=== PATIENT | female | born 1975 | race Caucasian/White ===

== ENCOUNTER 2016-11-26 20:04 | Emergency (ER) | payer BC, MEDICAID ==
[2016-11-26] MEDS ORDERED: COLCHICINE 0.6 MG TABLET PO ONE (20:46)
[2016-11-26] MEDS ORDERED: INDOMETHACIN 25 MG CAPSULE PO ONE (20:46)
--- NOTE | 2016-11-26 20:51 | Emergency Department Record ---
History of Present Illness - General Chief complaint: Pain Stated complaint: RT THUMB PAIN Time Seen by Provider: 11/26/16 20:46 Source: Patient Mode of Arrival: Ambulatory Limitations: No limitations - History of Present Illness Initial comments: 40 yo female presents to ED with a CC of right thumb pain for the past 5 days. Patient denies any injury to the thumb, but does report history of arthritis. Patient also reports a history of DM. Patient denies fevers, chills, or signs of infection. MD Complaint: Joint pain Onset/Timin -: Days(s) Location: Right, Other History of Same: No -: Yes Arthralgia Severity scale (1-10): 8 Quality: Sharp, Other Consistency: Constant Improves with: Nothing Worsens with: Nothing Associated Symptoms: Denies other symptoms - Related Data Previous Rx's Medication Instructions Recorded Hydrocodone/Acetaminophen [[place] 1 tab PO Q6H PRN #10 tab 11/26/16 5mg/325mg] Indomethacin [Indocin] 50 mg PO TID #30 cap 11/26/16 Allergies Allergy/AdvReac Type Severity Reaction Status Date / Time phenylpropanolamine HCl Allergy Unknown HIVES Unverified 09/16/16 08:19 [From DIMETAPP ALLERGY] gabapentin [From Neurontin] Allergy tremmors Unverified 09/16/16 08:19 Travel Screening - Travel/Exposure Within Last 30 Days Have you traveled within the last 30 days?: No Review of Systems Constitutional: Denies: Chills, Fever, Malaise, Night sweats Eyes: Denies: Eye discharge, Eye pain ENT: Denies: Congestion, Ear pain, Epistaxis Respiratory: Denies: Cough, Dyspnea Cardiovascular: Denies: Chest pain, Dyspnea on exertion Endocrine: Denies: Fatigue, Heat or cold intolerance Gastrointestinal: Denies: Abdominal pain, Nausea, Vomiting Genitourinary: Denies: Dysuria, Frequency Musculoskeletal: Reports: Arthralgia, Joint swelling. Denies: Back pain, Gout Skin: Denies: Bruising, Change in color, Change in hair/nails Neurological: Denies: Abnormal gait, Confusion, Headache, Seizure Psychiatric: Denies: Anxiety Hematological/Lymphatic: Denies: Anemia, Blood Clots Past Medical History - SOCIAL HISTORY Smoking Status: Current every day smoker Alcohol Use: Rare Drug Use: Occassional Drug Use Detail:: Marijuana - RESPIRATORY Hx Respiratory Disorders: Yes Hx Asthma: Yes Hx Bronchitis: Yes Hx Pneumonia: Yes - CARDIOVASCULAR Hx Cardio Disorders: No - NEURO Hx Neuro Disorders: Yes Hx Headaches: Yes - GI Hx GI Disorders: No - Hx Genitourinary Disorders: No - ENDOCRINE Hx Endocrine Disorders: Yes Hx Diabetes: Yes - MUSCULOSKELETAL Hx Arthritis: Yes - PSYCH Hx Anxiety: Yes Hx Depression: Yes - HEMATOLOGY/ONCOLOGY Hx Hematology/Oncology Disorders: No Family Medical History Any Significant Family History?: Yes Hx Dementia: Grandparents Hx Diabetes: Mother, Grandparents Hx Heart Disease: Grandparents Physical Exam - General General Appearance: Alert, Oriented x3, Cooperative Limitations: No limitations - Head Head exam: Atraumatic, Normocephalic, Normal inspection Head exam detail: negative: Abrasion, Contusion, Bowen's sign, General tenderness, Hematoma, Laceration - Eye Eye exam: Normal appearance. negative: Conjunctival injection, Periorbital swelling, Periorbital tenderness, Scleral icterus - ENT Ear exam: negative: Auricular hematoma, Auricular trauma Nasal Exam: negative: Active bleeding, Discharge, Dried blood, Foreign body Mouth exam: negative: Drooling, Laceration, Muffled voice, Tongue elevation - Neck Neck exam: Normal inspection. negative: Meningismus, Tenderness - Respiratory Respiratory exam: Normal lung sounds bilaterally. negative: Rales, Respiratory distress, Rhonchi, Stridor - Cardiovascular Cardiovascular Exam: Regular rate, Normal rhythm, Normal heart sounds - GI/Abdominal GI/Abdominal exam: Soft. negative: Rebound, Rigid, Tenderness - Rectal Rectal exam: Deferred - exam: Deferred - Extremities Extremities exam: Full ROM, Tenderness, Other (TTP over the base of the right thumb, pain with ROM, mild erythema over the area without signs of infection present. Findings are c/w Gout.). negative: Calf tenderness, Pedal edema - Back Back exam: Denies: CVA tenderness (R), CVA tenderness (L), Paraspinal tenderness - Neurological Neurological exam: Alert, Normal gait, Oriented X3 - Psychiatric Psychiatric exam: Normal affect, Normal mood - Skin Skin exam: Normal color. negative: Abrasion Type of lesion: negative: abrasion Course Vital Signs 11/26/16 20:10 Temperature 98.3 F Pulse Rate [ 68 Pulse Ox Probe] Respiratory 21 Rate Blood Pressure 132/83 [Left Arm] Pulse Ox 98 - Reevaluation(s) Reevaluation #1: 11/26/16 20:50 Patient was counseled regarding probably GOUT, would like prefer labs to be drawn for further evaluation. Colchicine and Indomethacin ordered as well. Reevaluation #2: 11/26/16 21:46 Right thumb: Negative Reevaluation #3: 11/26/16 22:01 Labs reviewed and are grossly unremarkable for an acute process. Will treat as probable Gout with Indomethacin and [place] as needed for her pain sympotms with instructions for follow-up in 3-5 days with her PCP. Medical Decision Making - Lab Data Result diagrams: 11/26/16 21:30 11/26/16 21:30 Disposition Disposition: Discharge Clinical Impression: Pain of right thumb Gout Qualifiers: Gout site: hand Gout etiology: unspecified cause Laterality: right Chronicity: acute Qualified Code(s): M10.9 - Gout, unspecified Disposition: Home, Self-Care Condition: (2) Stable Instructions: Acute Gouty Arthritis (ED) Additional Instructions: Return to ED if your symptoms worsen or if you have any concerns. Indomethacin as directed. Follow-up with your family doctor in 3-5 days as directed. Prescriptions: Indomethacin [Indocin] 50 mg PO TID #30 cap Hydrocodone/Acetaminophen [[place] 5mg/325mg] 1 tab PO Q6H PRN #10 tab PRN Reason: Pain - General Forms: Patient Portal Access Time of Disposition: 22:02
[2016-11-26 21:40] LABS: BASO % 0.4 % (0-6); GRAN % 62.2 % (47-80); HEMATOCRIT 42.9 % (35.0-47.0); HEMOGLOBIN 14.5 gm/dl (11.6-16.0); LYMPH % 26.6 % (16-45); MEAN CELL VOLUME 94.3 fl (81-97); MEAN CORPUSCULAR HEMOGLOBIN 31.9 pg (27-33); MEAN CORPUSCULAR HGB CONC 33.8 g/dl (32-36); MEAN PLATELET VOLUME 10.9 fl (7.4-10.4); MONO % 6.8 % (0-9); PLATELET COUNT 180 K/uL (130-400); RED BLOOD COUNT 4.55 M/uL (3.80-5.40); RED CELL DISTRIBUTION WIDTH 13.1 % (11.5-14.5); WHITE BLOOD COUNT W/O DIFF 7.2 K/uL (4.2-12.2)
[2016-11-26 21:50] LABS: ALB/GLOB RATIO 1.3 (1.1-1.8); ALBUMIN 3.7 gm/dL (3.5-5.0); ALKALINE PHOSPHATASE 39 U/L (38-126); ALT/SGPT 26 U/L (9-52); ANION GAP 2.9 (7-16); AST/SGOT 14 U/L (14-36); BILIRUBIN,TOTAL 0.53 mg/dL (0.2-1.3); BLOOD UREA NITROGEN 9 mg/dL (7-17); CARBON DIOXIDE 25.1 mmol/L (22-30); CREATININE 0.8 mg/dL (0.52-1.04); EST GLOMERULAR FILTRATION RATE > 60 ml/min; GLUCOSE,RANDOM 85 mg/dL (70-110); TOTAL PROTEIN 6.6 gm/dL (6.3-8.2)
[2016-11-26] MEDS ORDERED: HYDROCODONE/APAP 5/325MG TABLET PO ONE (22:08)
--- NOTE | 2016-11-30 15:15 | RADIOLOGY REPORT ---
EXAM: RIGHT HAND, THREE VIEWS HISTORY: PAIN IN THE RIGHT THUMB. TECHNIQUE: Three views of the right hand are provided along with the comparison study of the left hand dated 11/09/13. FINDINGS: There is no radiographic evidence of a fracture or dislocation of the right hand. No significant soft tissue abnormalities are visualized. IMPRESSION: NO RADIOGRAPHIC EVIDENCE OF AN ACUTE PROCESS INVOLVING THE RIGHT HAND. JOB NUMBER: [id number] [facility]
== END 2016-11-26 22:21 | disposition home or self-care (01) ==
LOC: ER 20:04
DX: M10.9 Gout, unspecified (principal); M79.644 Pain in right finger(s)
CPT/HCPCS: 80053; 84550; 85025; 99283

== ENCOUNTER 2017-07-13 07:38 | Emergency (ER) | payer BC, MEDICAID ==
[2017-07-13 07:56] LABS: URINE APPEARANCE SL CLOUDY; URINE BILIRUBIN NEGATIVE (NEGATIVE); URINE BLOOD NEGATIVE (NEGATIVE); URINE COLOR YELLOW; URINE GLUCOSE (UA) NEGATIVE (NEGATIVE); URINE KETONE NEGATIVE (NEGATIVE); URINE LEUKOCYTE ESTERASE NEGATIVE (NEGATIVE); URINE NITRITE NEGATIVE (NEGATIVE); URINE PROTEIN NEGATIVE (NEGATIVE); URINE UROBILINOGEN 0.2 E.U./dL (0.20 - 1.00)
--- NOTE | 2017-07-13 08:17 | Emergency Department Record ---
History of Present Illness - General Chief Complaint: Abdominal Pain Stated Complaint: RIGHT SIDE PAIN Time Seen by Provider: 07/13/17 07:51 Source: Patient, RN notes reviewed Mode of Arrival: Ambulatory - History of Present Illness Initial Comments: 2 weeks of right upper quad pain and last night pain moved into her back and much worse sharp stabbing pain with nausea . PSH GB surg, hernia surg at 6 yrs of age. 4 days of sinuses and congestion and cough. father had kidney stones Onset/Timin -: Week(s) Location: R Flank Radiation: None Severity: Moderate Quality: Sharp Consistency: Constant, Getting worse Improves With: Nothing Worsens With: Nothing Associated Symptoms: Denies other symptoms Treatments Prior to Arrival: NSAIDs - Related Data Patient : No Home Medications Medication Instructions Recorded Confirmed Last Taken Albuterol Sulfate [Proair Hfa] 2 puff INH ASDIR 07/13/17 07/13/17 Unknown Cholecalciferol (Vitamin D3) 1 tab PO DAILY 07/13/17 07/13/17 07/13/17 [Vitamin D3] Coy-3 Fatty Acids/Fish Oil [Fish 1 tab PO DAILY 07/13/17 07/13/17 07/13/17 Oil 1,000 mg Capsule] Previous Rx's Medication Instructions Recorded Hydrocodone/Acetaminophen [[place] 1 each PO Q4HR #20 tablet 07/13/17 5-325 Tablet] Allergies Allergy/AdvReac Type Severity Reaction Status Date / Time phenylpropanolamine HCl Allergy Unknown HIVES Verified 07/13/17 07:45 [From DIMETAPP ALLERGY] gabapentin [From Neurontin] Allergy tremmors Verified 07/13/17 07:45 Travel Screening - Travel/Exposure Within Last 30 Days Have you traveled within the last 30 days?: No - Travel/Exposure Within Last Year Have you traveled outside the [place] in the last year?: No - Additonal Travel Details Have you been exposed to anyone with a communicable illness?: No - Travel Symptoms Symptom Screening: None Review of Systems Reviewed: No additional complaints except as noted below Constitutional: Reports: As per HPI. Denies: Chills, Fever, Malaise, Night sweats, Weakness, Weight change Eyes: Reports: As per HPI. Denies: Eye discharge, Eye pain, Photophobia, Vision change ENT: Reports: As per HPI, Congestion. Denies: Dental pain, Ear pain, Epistaxis , Hearing loss, Throat pain Respiratory: Reports: As per HPI. Denies: Cough, Dyspnea, Hemoptysis, Stridor, Wheezes Cardiovascular: Reports: As per HPI. Denies: Arrhythmia, Chest pain, Dyspnea on exertion, Edema, Murmurs, Orthopnea, Palpitations, Paroxysmal nocturnal dyspnea, Rheumatic Fever, Syncope Endocrine: Reports: As per HPI. Denies: Fatigue, Heat or cold intolerance, Polydipsia, Polyuria Gastrointestinal: Reports: As per HPI, Abdominal pain (right upper quad and right flank pain). Denies: Constipation, Diarrhea, Hematemesis, Hematochezia, Melena, Nausea, Vomiting Genitourinary: Reports: As per HPI. Denies: Abnormal menses, Discharge, Dyspareunia, Dysuria, Frequency, Hematuria, Incontinence, Retention, Urgency Musculoskeletal: Reports: As per HPI. Denies: Arthralgia, Back pain, Gout, Joint swelling, Myalgia, Neck pain Skin: Reports: As per HPI. Denies: Bruising, Change in color, Change in hair/ nails, Lesions, Pruritus, Rash Neurological: Reports: As per HPI. Denies: Abnormal gait, Confusion, Headache, Numbness, Paresthesias, Seizure, Tingling, Tremors, Vertigo, Weakness Psychiatric: Reports: As per HPI. Denies: Anxiety, Auditory hallucinations, Depression, Homicidal thoughts, Suicidal thoughts, Visual hallucinations Hematological/Lymphatic: Reports: As per HPI. Denies: Anemia, Blood Clots, Easy bleeding, Easy bruising, Swollen glands Past Medical History - SOCIAL HISTORY Smoking Status: Current every day smoker Alcohol Use: Occasional Drug Use: Heavy Drug Use Detail:: Marijuana - RESPIRATORY Hx Respiratory Disorders: Yes Hx Asthma: Yes Hx Bronchitis: Yes Hx Pneumonia: Yes - CARDIOVASCULAR Hx Cardio Disorders: No - NEURO Hx Neuro Disorders: Yes Hx Headaches: Yes - GI Hx GI Disorders: No - Hx Genitourinary Disorders: No - ENDOCRINE Hx Endocrine Disorders: Yes Hx Diabetes: Yes - MUSCULOSKELETAL Hx Arthritis: Yes - PSYCH Hx Anxiety: Yes Hx Depression: Yes - HEMATOLOGY/ONCOLOGY Hx Hematology/Oncology Disorders: No Family Medical History Any Significant Family History?: Yes Hx Dementia: Grandparents Hx Diabetes: Mother, Grandparents Hx Heart Disease: Grandparents Physical Exam - General General Appearance: Alert, Oriented x3, Cooperative, No acute distress - Head Head exam: Normal inspection - Eye Eye exam: Normal appearance, PERRL Pupils: Normal accommodation - ENT ENT exam: Normal exam, Mucous membranes moist, Normal external ear exam, Normal orophraynx, TM's normal bilaterally Ear exam: Normal external inspection. negative: External canal tenderness Nasal Exam: Normal inspection. negative: Discharge, Sinus tenderness Mouth exam: Normal external inspection, Tongue normal Teeth exam: Normal inspection. negative: Dental caries Throat exam: Normal inspection. negative: Tonsillar erythema, Tonsillar exudate - Neck Neck exam: Normal inspection, Full ROM. negative: Tenderness - Respiratory Respiratory exam: Normal lung sounds bilaterally. negative: Respiratory distress - Cardiovascular Cardiovascular Exam: Regular rate, Normal rhythm, Normal heart sounds - GI/Abdominal GI/Abdominal exam: Soft, Normal bowel sounds, Guarding, Tenderness (right upper quad pain and right flank pain, abd soft ). negative: Distended, Mass, Rebound , Rigid - Rectal Rectal exam: Deferred - exam: Deferred - Extremities Extremities exam: Normal inspection, Full ROM, Normal capillary refill. negative: Tenderness - Back Back exam: Reports: Normal inspection, Full ROM. Denies: Muscle spasm, Rash noted, Tenderness - Neurological Neurological exam: Alert, Normal gait, Oriented X3, Reflexes normal - Psychiatric Psychiatric exam: Normal affect, Normal mood - Skin Skin exam: Dry, Intact, Normal color, Warm Course Vital Signs 07/13/17 07:51 Temperature 98.7 F Pulse Rate 83 Respiratory 20 Rate Blood Pressure 134/84 Pulse Ox 96 Medical Decision Making - Data Complexity MDM Data: Labs Ordered and/or Reviewed, X-Ray Ordered and/or Reviewed (CT scan negative) - Lab Data Result diagrams: 07/13/17 08:40 07/13/17 08:40 Lab Results 07/13/17 Range/Units 07:45 Urine Color Yellow Urine Appearance Sl cloudy Urine pH 6.0 (5.0-8.0) Ur Specific [place] <= 1.005 (1.002-1.030) Urine Protein Negative (NEGATIVE) Urine Glucose (UA) Negative (NEGATIVE) Urine Ketones Negative (NEGATIVE) Urine Blood Negative (NEGATIVE) Urine Nitrite Negative (NEGATIVE) Urine Bilirubin Negative (NEGATIVE) Urine Urobilinogen 0.2 (0.20 - 1.00) E.U./dL Ur Leukocyte Esterase Negative (NEGATIVE) Disposition Clinical Impression: Right flank pain, Elevated lipase Abdominal pain Qualifiers: Abdominal location: right upper quadrant Qualified Code(s): R10.11 - Right upper quadrant pain Pancreatitis Qualifiers: Chronicity: acute Pancreatitis type: unspecified pancreatitis type Acute pancreatitis complication: unspecified Qualified Code(s): K85.90 - Acute pancreatitis without necrosis or infection, unspecified Disposition: Home, Self-Care Condition: (1) Good Instructions: Abdominal Pain (ED), Pancreatitis (ED) Additional Instructions: follow up with GI Dr in one two two weeks follow up with a family Dr. in one week please give family Dr. list clear liquids today and slowly increase diet tomorrow Prescriptions: Hydrocodone/Acetaminophen [[place] 5-325 Tablet] 1 each PO Q4HR #20 tablet Forms: Patient Portal Access Time of Disposition: 09:58 Quality - Quality Measures Quality Measures: N/A - Blood Pressure Screening Does Patient Have Any of the Following: No Blood Pressure Classification: Pre-Hypertensive BP Reading Systolic Measurement: 134 Diastolic Measurement: 84 Screening for High Blood Pressure: < Pre-Hypertensive BP, F/U Documented > [ G8950] Pre-Hypertensive Follow-up Interventions: Referral to alternative/primary care provider.
[2017-07-13] MEDS: 0.9 % SODIUM CHLORIDE 1000ML 1,000 ML IV PRN (08:37)
[2017-07-13] MEDS: KETOROLAC 30 MG/ML VIAL IVP ONE (08:37)
[2017-07-13 08:48] LABS: HEMATOCRIT 46.3 % (35.0-47.0); HEMOGLOBIN 15.4 gm/dl (11.6-16.0); MEAN CELL VOLUME 93.7 fl (81-97); MEAN CORPUSCULAR HEMOGLOBIN 31.2 pg (27-33); MEAN CORPUSCULAR HGB CONC 33.3 g/dl (32-36); MEAN PLATELET VOLUME 10.8 fl (7.4-10.4); PLATELET COUNT 231 K/uL (130-400); RED BLOOD COUNT 4.94 M/uL (3.80-5.40); RED CELL DISTRIBUTION WIDTH 13.4 % (11.5-14.5); WHITE BLOOD COUNT W/O DIFF 6.6 K/uL (4.2-12.2)
[2017-07-13 09:05] LABS: HCG,QUALITATIVE URINE NEGATIVE (NEGATIVE)
[2017-07-13 09:05] LABS: ALBUMIN 3.8 g/dL (4.0-5.0); ALKALINE PHOSPHATASE 30 U/L (35-104); ALT/SGPT 13 U/L (<33); AST/SGOT 13 U/L (10.0-35.0); BLOOD UREA NITROGEN 9 mg/dL (6-20); CREATININE 0.7 mg/dL (0.5-0.9); EST GLOMERULAR FILTRATION RATE > 60 mL/min; GLUCOSE,RANDOM 92 mg/dL (74-109); LIPASE 94 U/L (13-60); TOTAL PROTEIN 6.4 g/dL (6.6-8.7)
[2017-07-13 09:06] LABS: BILIRUBIN,DIRECT < 0.2 mg/dL (0-0.3)
--- NOTE | 2017-07-13 12:41 | CT SCAN REPORT ---
EXAM: ABDOMEN AND PELVIS CT WITHOUT IV CONTRAST HISTORY: ACUTE LEFT LOWER QUADRANT ABDOMINAL PAIN. TECHNIQUE: Contiguous axial images from the lung bases to the symphysis pubis were obtained without IV contrast. Comparison: Abdomen and pelvis CT 01/02/14. FINDINGS: The lung bases are clear. The liver and spleen are unremarkable. The kidneys are unremarkable with no calculi or hydronephrosis. Thickening of the left adrenal gland consistent with benign hyperplasia. Low attenuation right adrenal nodule measuring 17 mm unchanged consistent with benign adenoma. The pancreas is unremarkable. The gallbladder is absent. The visualized loops of small and large bowel are of normal caliber. Normal appendix. No bowel wall thickening or inflammatory change. No diverticula. Mild aortoiliac calcification without aneurysm. No free intraperitoneal fluid or adenopathy. The uterus is present. The ovaries are symmetric in size. The urinary bladder is unremarkable. No lytic or blastic osseous lesion. IMPRESSION: 1. NO ACUTE PROCESS OF THE ABDOMEN OR PELVIS. NORMAL APPENDIX. 2. STATUS POST CHOLECYSTECTOMY. JOB NUMBER: [id number] [facility]
== END 2017-07-13 10:25 | disposition home or self-care (01) ==
LOC: ER 07:38
DX: K85.90 Acute pancreatitis without necrosis or infection, unspecified (principal); R10.11 Right upper quadrant pain; R11.0 Nausea; R05 Cough; R74.8 Abnormal levels of other serum enzymes
CPT/HCPCS: 99284 ×2; 96374; 83690; 80076; 80048; 81003; 81025; 85027; 74176; J1885